=== PATIENT | female | born 1975 | race Hispanic/Latino ===

== ENCOUNTER 2023-10-17 13:03 | Emergency (ER) | payer OTHER, SELFPAY ==
[2023-10-17 13:51] LABS: #Monocytes 0.4 10x3/uL (0.0-1.1); #Neutrophils 5.7 10x3/uL (1.5-8.4); %Basophils 0.3 % (0.0-2.0); %Eosinophils 0.6 % (0.0-6.0); %Lymphocytes 14.9 % (18.0-47.0); %Monocytes 5.4 % (0.0-10.0); %Neutrophils 78.5 % (40.0-75.0); Hemoglobin 14.5 g/dL (12.0-15.5); Mean Corpuscular HGB CONC 35.4 g/dL (32.0-36.0); Mean Corpuscular Hemoglobin 30.9 pg (27.0-33.0); Mean Corpuscular Volume 87.2 fl (81.6-98.3); Mean Platelet Volume 10.4 fl (7.4-10.4); Platelet Count 220 10x3/uL (150-450); RBC Distribution Width 12.7 % (11.5-14.5); White Blood Cell (WBC) Count 7.2 10x3/uL (3.5-10.5)
[2023-10-17 14:09] LABS: BHCG - Serum Negative (NEGATIVE); Pregs Control Background? CLEAR/WHITE (CLR/WHITE); Pregs Control Bar Appear? YES (CONTROL BAR)
== END 2023-10-17 14:19 | disposition home or self-care (01) ==
LOC: CSHERS 13:03
DX: N92.0 Excessive and frequent menstruation with regular cycle (principal); D64.9 Anemia, unspecified; Z55.6 Problems related to health literacy
CPT/HCPCS: 84703; 85025; 99284

== ENCOUNTER 2024-05-21 08:58 | Emergency (ER) | payer OTHER ==
[2024-05-21 09:58] LABS: #Basophils 0.02 10x3/uL (0.0-0.2); #Eosinphils 0.06 10x3/uL (0.0-0.5); #Monocytes 0.34 10x3/uL (0.0-1.1); #Neutrophils 6.23 10x3/uL (1.5-8.4); %Basophils 0.3 % (0.0-2.0); %Eosinophils 0.8 % (0.0-6.0); %Lymphocytes 13.2 % (18.0-47.0); %Monocytes 4.4 % (0.0-10.0); %Neutrophils 81.2 % (40.0-75.0); Hematocrit 38.1 % (34.9-44.5); Hemoglobin 13.6 g/dL (12.0-15.5); Mean Corpuscular HGB CONC 35.7 g/dL (32.0-36.0); Mean Corpuscular Volume 86.8 fL (81.6-98.3); Mean Platelet Volume 9.7 fL (7.4-10.4); Platelet Count 190 10x3/uL (150-450); Red Blood Cell (RBC) Count 4.39 10x6/uL (3.90-5.03); White Blood Cell (WBC) Count 7.7 10x3/uL (3.5-10.5)
== END 2024-05-21 10:41 | disposition home or self-care (01) ==
LOC: CSHERS 08:58
DX: N92.0 Excessive and frequent menstruation with regular cycle (principal)
CPT/HCPCS: 36415; 85025; 99284

== ENCOUNTER 2024-09-18 14:19 | Outpatient (CLI) | payer OTHER ==
[2024-09-18 15:39] LABS: #Basophils Less than 0.03 10x3/uL (0.0-0.2); #Eosinophils 0.04 10x3/uL (0.0-0.5); #Monocytes 0.34 10x3/uL (0.0-1.1); #Neutrophils 4.21 10x3/uL (1.5-8.4); %Basophils 0.3 % (0.0-2.0); %Eosinophils 0.6 % (0.0-6.0); %Lymphocytes 25.1 % (18.0-47.0); %Monocytes 5.5 % (0.0-10.0); %Neutrophils 68.2 % (40.0-75.0); Hematocrit 40.3 % (34.9-44.5); Hemoglobin 12.8 g/dL (12.0-15.5); Mean Corpuscular HGB CONC 31.8 g/dL (32.0-36.0); Mean Corpuscular Volume 78.6 fL (81.6-98.3); Mean Platelet Volume 10.2 fL (7.4-10.4); Platelet Count 245 10x3/uL (150-450); Red Blood Cell (RBC) Count 5.13 10x6/uL (3.90-5.03); White Blood Cell (WBC) Count 6.18 10x3/uL (3.5-10.5)
[2024-09-18 16:06] LABS: Anion Gap 15 mmol/L (10-20); BUN (Urea Nitrogen) 14 mg/dL (7.0-18.7); Calc. Creatinine Clearance 0 mL/min (70-130); Calcium 9.7 mg/dL (7.8-10.44); Carbon Dioxide 22 mmol/L (22-29); Chloride 109 mmol/L (98-107); Estimated GFR 110; Glucose 141 mg/dL (70-105); Potassium 4.1 mmol/L (3.5-5.1); Sodium 142 mmol/L (136-145)
== END 2024-09-18 14:20 | disposition home or self-care (01) ==
LOC: CSHLAB 14:19
PROVIDERS: ATTEND Specialist
DX: Z01.812 Encounter for preprocedural laboratory examination (principal); D48.62 Neoplasm of uncertain behavior of left breast
CPT/HCPCS: 80048; 85025